=== PATIENT | female | born 1970 | race Caucasian/White ===

== ENCOUNTER 2019-02-05 08:26 | Day surgery (SDC) | payer BC ==
[~2019-02-05 08:26] MED LIST: Buffered Lidocaine 1% SYRIN* 1 ML/SYRINGE INTRADERM ONE; Lactated Ringers 1000 ML Bag* 1,000 ML IV SCH
[2019-02-05] MEDS ORDERED: Buffered Lidocaine 1% SYRIN* 1 ML/SYRINGE INTRADERM ONE (08:41)
[2019-02-05] MEDS ORDERED: Famotidine IV* 10 MG/ML 2 ML (20 mg) ONE (08:41)
[2019-02-05] MEDS ORDERED: ceFAZolin 2 GM PREMIX in ORs 2 GM/50 ML BAG ONE (08:41)
[2019-02-05] MEDS ORDERED: Midazolam* 1 MG/ML 5 ML VIAL (5 MG) ONE (09:12)
[2019-02-05] MEDS ORDERED: fentaNYL* 50 MCG/ML 2 ML VIAL (100 MCG VIAL) ONE (09:12)
[2019-02-05] MEDS ORDERED: Lidocaine 1% MPF ** 5 ML VIAL ONE (09:21)
[2019-02-05] MEDS ORDERED: ROPIVACAINE 5 MG/ML 30 ML BTL (0.5%) ONE (09:21)
[2019-02-05] MEDS: Famotidine IV* 10 MG/ML 2 ML (20 mg) IV ONE ×2 (09:40→09:41)
[2019-02-05] MEDS ORDERED: Scopolamine 1.5 mg* PATCH TRANSDERM SCH (10:00)
[2019-02-05] MEDS ORDERED: Scopolamine 1.5 mg* PATCH ONE (10:00)
[2019-02-05] MEDS ORDERED: Dexamethasone IV* 4 MG/ML 1 ML (4 MG) ONE (11:51)
[2019-02-05] MEDS ORDERED: Lidocaine 2% PF * 5 ML VIAL ONE (11:51)
[2019-02-05] MEDS ORDERED: Ondansetron INJ* 2 MG/ML VIAL ONE (11:51)
[2019-02-05] MEDS ORDERED: Propofol* 10 MG/ML 20 ML BTL ONE ×2 (11:51→12:28)
[2019-02-05] MEDS ORDERED: Ketorolac INJ* 30 MG/ML 1 ML VIAL ONE (11:51)
[2019-02-05] MEDS ORDERED: DiMENhydriNATE IV* 50 MG/ML VIAL ONE ×2 (11:51→13:14)
[2019-02-05] MEDS ORDERED: Naloxone* 0.4 MG/ML 1 ML VIAL IV PRN (12:23)
[2019-02-05] MEDS ORDERED: DiMENhydriNATE IV* 50 MG/ML VIAL IV PUSH PRN (12:23)
[2019-02-05] MEDS ORDERED: Acetaminophen TAB* 325 MG PO SCH (13:00)
[2019-02-05] MEDS ORDERED: Metoclopramide IV* 5 MG/ML 2 ML VIAL ONE (14:15)
[2019-02-05 15:29] VITALS: BP 114/74
--- NOTE | 2019-02-07 10:14 | OP ---
DATE OF OPERATION: 02/05/19 [facility] DATE OF : 68 SURGEON: Patricia Ortega MD SPONGE HOOKER: JOHNATHAN Carson. An advertising assistant manager was needed for the entirety of the case to help with positioning, retraction, and was utilized throughout all portions of the case. ANESTHESIOLOGIST: Dr. Mckee. PRE-OP DIAGNOSIS: Right shoulder impingement with acromioclavicular joint arthritis and bicipital tendonitis. POST-OP DIAGNOSES: 1. Right shoulder impingement with acromioclavicular joint arthritis and bicipital tendonitis. 2. High-grade partial thickness tearing of the supraspinatus tendon. OPERATIVE PROCEDURE: Right shoulder arthroscopy with: 1. Extensive glenohumeral debridement. 2. Distal clavicle excision. 3. Subacromial decompression with acromioplasty. 4. Rotator cuff repair using REGENETEN patch. 5. Open biceps tenodesis. COMPLICATIONS: None. ESTIMATED BLOOD LOSS: Minimal. IMPLANTS USED: One size medium REGENETEN patch, one Q-Fix 2.8 mm. INDICATION FOR PROCEDURE: Char Roper is a 48-year-old female with persistent shoulder pain refractory to conservative management. She has failed physical therapy, anti-inflammatories, ice, heat, injections. She has elected to proceed with surgical treatment. Risks and benefits included, but not limited to bleeding; infection; damage to nerves, vessels, surrounding structures; wound nonhealing; persistent pain; need for surgery; scarring; stiffness; incomplete relief of symptoms; risks of anesthesia. DESCRIPTION OF PROCEDURE: The patient was greeted in the preoperative area by the attending surgeon. Correct extremity was marked. Consent was confirmed. The patient was brought back to the operating suite, where she was placed in supine position on the operating table. The patient underwent interscalene nerve block by the anesthesiologist, after which she was brought back to the operating suite and placed in supine position on the operating table. She then underwent general anesthesia endotracheal intubation, after which she was placed in the left lateral decubitus position. All bony prominences were padded. She was secured with pegboard. The right shoulder was then prepped and draped in the usual sterile fashion with chlorhexidine soap, scrub, and alcohol wipe and a final prep with ChloraPrep. After appropriate surgical pause indicating side, site, procedure, and administration of antibiotics, the standard postero-lateral portal was made sharply with 11 blade. The scope was introduced into the joint and the joint was examined. There was abundant synovitis in the joint. There was evidence of SLAP type 2 tear. The subscap had mild fraying, but the undersurface of the supraspinatus had high- grade partial thickness tearing. The anterior portal was made in an outside-in fashion. Shaver was used to debride back the anterior , posterior, superior labrum. Biceps was then tenotomized for lateral tenodesis. Inferior recess was intact. Glenohumeral joint had grade 0 to 1 changes and then the undersurface of the rotator cuff was debrided. Once the intraarticular work was completed, attention was directed to the subacromial space. With the scope was positioned in the subacromial space, lateral portal was made in an outside-in fashion. There was abundant bursa that was present. The undersurface of the acromion was skeletonized using electrocautery device. There was an anterolateral spur that was debrided back using a 4.0 oval simon. CA ligament was peeled back and was taken all the way to the level of the AC joint. The AC joint had abundant stenosis that was apparent. The simon was brought into the anterior portal to address the distal clavicle. Distal 8 mm was removed using the simon. Care was taken not to damage the CC ligament. Once this was completed, there was found to be appropriate amount of room for motion. All loose debris was removed. Attention was directed to the rotator cuff. The cuff was examined again. There was no tearing on the bursal side. Decision was made to treat this with REGENETEN patch. A size medium REGENETEN patch was brought to the field and placed under arthroscopic visualization. This was then secured through separate stab incision with 10 jerrod and laterally with PEEK jerrod. Once it was well secured, final images were obtained. The wounds were then copiously irrigated with sterile saline and attention was directed to the biceps. The anterior aspect of the shoulder was prepped again using ChloraPrep. A #15 blade was used to make an incision along the inferior aspect of the biceps. Soft tissues were carefully dissected and the inferior pec was identified. The remainder of the dissection was done bluntly. The pec was elevated. Biceps was visualized and brought through the wound. The groove was then prepared in the usual fashion. Electrocautery device and red ball rasp and osteotome were used to prepare the groove. Q-Fix was deployed with excellent purchase and then the suture was passed through the tendon 1 cm proximal to the musculotendinous junction in Mark-Deion type configuration. Next, the stump was excised. The biceps was shuttled and secured back to the humerus. The wounds were then copiously irrigated with sterile saline. Portals were closed with 3-0 nylon. The skin was closed in layers with 3-0 Monocryl. Sterile dressings were applied. Cryo/Cuff and UltraSling were applied. She was awoken from anesthesia and transferred to the PACU in stable condition. POSTOPERATIVE PLAN: She will be nonweightbearing. She will be in a sling for 2 weeks. Discharged on pain medication. DVT prophylaxis was considered, but deferred due to no previous personal or family history. I will see the patient back in 10 to 14 days. [id number]/[facility] #: [id number] PEÑA
== END 2019-02-05 15:32 | disposition home or self-care (01) ==
LOC: OR 08:26
PROVIDERS: ATTEND Orthopaedic Surgery
DX: M75.41 Impingement syndrome of right shoulder (principal); M19.011 Primary osteoarthritis, right shoulder; M75.21 Bicipital tendinitis, right shoulder; M75.111 Incomplete rotator cuff tear or rupture of right shoulder, not specified as traumatic; G89.18 Other acute postprocedural pain
CPT/HCPCS: 81025; A9270-GY; C1713; C1776; J0690; J1100; J1240; J1885; J2250; J2405; J2704; J2765; J2795; J3010